=== PATIENT | male | born 1950 | race Hispanic/Latino ===

== ENCOUNTER 2017-03-12 09:00 | Inpatient (IN) | payer MEDICARE ==
[2017-02-13 09:03] VITALS: BMI 32.8
--- NOTE | 2017-03-12 09:23 | CP.PCM.HP ---
History of Present Illness - History of Present Illness History of Present Illness: 66M with right knee DJD failed conservative mgmt and elected for TKR. PMH: HTN, DM, hyperlipidemia PSH: denies No history of bleeding disorder or blood clots. No history of stent. No recent illness. NKDA Present on Admission - Present on Admission Any Indicators Present on Admission: No Review of Systems - Review of Systems All systems: reviewed and no additional remarkable complaints except Past Patient History - Past Medical History & Family History Past Medical History?: Yes - Past Social History Smoking Status: Former Smoker - CARDIAC Hx Cardiac Disorders: Yes Hx Hypercholesterolemia: Yes Hx Hypertension: Yes - PULMONARY Hx Respiratory Disorders: No - NEUROLOGICAL Hx Neurological Disorder: No - HEENT Hx HEENT Problems: Yes Hx Cataracts: Yes (SINCE RIGHT EYE-NO SURGERY) - RENAL Hx Chronic Kidney Disease: No - ENDOCRINE/METABOLIC Hx Endocrine Disorders: Yes Hx Diabetes Mellitus Type 2: Yes - HEMATOLOGICAL/ONCOLOGICAL Hx Blood Disorders: No - INTEGUMENTARY Hx Dermatological Problems: No - MUSCULOSKELETAL/RHEUMATOLOGICAL Hx Musculoskeletal Disorders: Yes Hx Osteoarthritis: Yes - GASTROINTESTINAL Hx Gastrointestinal Disorders: No - GENITOURINARY/GYNECOLOGICAL Hx Genitourinary Disorders: No - PSYCHIATRIC Hx Psychophysiologic Disorder: No - SURGICAL HISTORY Hx Surgeries: Yes - ANESTHESIA Hx Anesthesia: Yes Hx Anesthesia Reactions: No Hx Malignant Hyperthermia: No Has any member of the family had a problem w/ anesthesia?: No Meds Allergies/Adverse Reactions: Allergies Allergy/AdvReac Type Severity Reaction Status Date / Time No Known Allergies Allergy Verified 02/13/17 09:03 Physical Exam - Constitutional Appears: Well, No Acute Distress Additional comments: medical H&P/clearance on chart - Head Exam Head Exam: ATRAUMATIC - Respiratory Exam Respiratory Exam: NORMAL BREATHING PATTERN - Extremities Exam Additional comments: calves soft NT neg homans - Expanded Lower Extremities Exam Right Neuro vacular tendon exam: no vascular compromise - Neurological Exam Neurological exam: Alert, Oriented x3 - Psychiatric Exam Psychiatric exam: Normal Affect, Normal Mood - Skin Skin Exam: Dry, Intact, Normal Color, Warm Results - Labs Labs: labs on chart, reviewed. - EKG Data EKG Interpreted by: Other EKG shows normal: Sinus rhythm Rate: Normal - Impressions Impression: atient Name / ID : TESSA PABON Tatyana / [id number] Exam Date : 02/13/2017 09:21:52 ( Approved ) Study Comment : Sex / Age : M / 66Y Creator : Milena Pisano MD Dictator : Milena Pisano MD Marketing Producer : Media Manager : Milena Pisano MD Approver2 : Report Date : 02/13/2017 10:18:00 My Comment : HISTORY: PREOP O.R. 03/12 COMPARISON: No prior. TECHNIQUE: Chest PA and lateral FINDINGS: LUNGS: The lungs are well inflated and clear. PLEURA: No significant pleural effusion identified. No pneumothorax apparent. CARDIOVASCULAR: Normal. OSSEOUS STRUCTURES: No significant abnormalities. VISUALIZED UPPER ABDOMEN: Normal. OTHER FINDINGS: None. IMPRESSION: No active pulmonary disease. Assessment & Plan (1) Primary osteoarthritis of right knee Assessment and Plan: NPO T&S for OR Status: Acute (2) Hypertension Assessment and Plan: cont home meds Status: Chronic (3) Diabetes type 2, controlled Assessment and Plan: cont home meds RISS Status: Chronic (4) Hyperlipemia Status: Chronic Decision To Admit - Pt Status Changed To: Hospital Disposition Of: Inpatient - Admit Certification Admit to Inpatient:: After my assessment, the patient will require hospitalization for at least two midnights. This is because of the severity of symptoms shown, intensity of services needed, and/or the medical risk in this patient being treated as an outpatient. - InPatient: Physician Admission Certification:: After my assessment, the patient will require hospitalization for at least two midnights. This is because of the severity of symptoms shown, intensity of services needed, and/or the medical risk in this patient being treated as an outpatient. - . Bed Request Type: Regular
[2017-03-12] MEDS ORDERED: Propofol 10 mg/ml Inj (20 ML) ONE (10:03)
[2017-03-12] MEDS ORDERED: Midazolam 2 MG/2 ML VIAL ONE (10:03)
[2017-03-12] MEDS: ceFAZolin IV 2 gm in Dextrose 1 GM/50 ML BAG IVPB ONE ×2 (10:59→11:40)
[2017-03-12] MEDS: Sodium Chloride 0.9% 60 ML IV ONE ×2 (11:01→12:45)
[2017-03-12] MEDS: Bacitracin 150,000 UNIT in Sodium Chloride 0.9% Irrig 3,000 ML IR SCH ×2 (11:01→11:53)
[2017-03-12] MEDS ORDERED: Succinylcholine Chloride 20 mg/ml Syr (5 ml) IV ONE (11:21)
[2017-03-12] MEDS: Bupivacaine Liposomal Inj 20 ml INFIL ONE ×2 (11:43→12:45)
[2017-03-12] MEDS: Tranexamic Acid 100 mg/ml IV SCH ×3 (11:43→13:11)
[2017-03-12] MEDS ORDERED: Neostigmine Methylsulfate 3mg/3ml Syringe IV ONE (13:23)
[2017-03-12] MEDS ORDERED: Morphine 4 MG/ML VIAL ONE (14:16)
[2017-03-12] MEDS ORDERED: Oxycodone/Acetaminophen 5/325 mg Tab PO PRN (14:23)
[2017-03-12] MEDS ORDERED: HYDROmorphone 0.5 mg/0.5 ml ISec IVP PRN (14:25)
[2017-03-12] MEDS ORDERED: ceFAZolin IV 2 gm in Dextrose 2 GM/100 ML BAG IVPB SCH (14:30)
[2017-03-12] MEDS ORDERED: Bupivacaine HCl 0.25% PF (10 ml) Inj ONE ×2 (14:31→14:32)
--- NOTE | 2017-03-12 14:31 | PCM.SURG1 ---
Surgeon's Initial Post Op Note - Surgeon's Notes Surgeon: Amy Jacobs MD Full Stack Python Developer: Gema Villanueva PA-C Type of Anesthesia: General Endo Anesthesia Administered By: Dr. Giraldo/Tosha AGUIRRE Pre-Operative Diagnosis: Right knee DJD Operative Findings: Tourniquet 77 min @300mmHg Post-Operative Diagnosis: same Operation Performed: Right total knee replacement Specimen/Specimens Removed: bone Estimated Blood Loss: EBL {In ML}: 100 Blood Products Given: N/A Drains Used: Hemovac Post-Op Condition: Fair Date of Surgery/Procedure: 03/12/17 Time of Surgery/Procedure: 14:30
[2017-03-12] MEDS: (Novolin R) Insulin Human Regular 100 units/ml vial SC SCH ×2 (16:15→21:40)
[2017-03-12] MEDS ORDERED: Sodium Chloride 0.9% 1,000 ML IV ONE (16:15)
--- NOTE | 2017-03-12 18:48 | CP.PCM.CON ---
History of Present Illness - History of Present Illness History of Present Illness: s/pr TKA HPI: Pt is a 66 year old male who follows with me for many years as his PMD. Pt had been having increasing difficulty with ambulation but was unable to have the funds/insurance to get his knee problem addressed. Finally pt decided to get his knee replaced bec of the pain. Pt was cleared by me for his operation, and today after surgery, I was called in to manage the pt from a Medical standpoint. > Pt is a diet controlled diabetic mostly, and was cleared by me for R TKR. Pt appeared to be doing well, no apparent complications form surgery. > Will continue to follow pt with you. Review of Systems - Constitutional Constitutional: absent: As Per HPI, Anorexia, Chills, Daytime Sleepiness, Excessive Sweating, Fatigue, Fever, Frequent Falls, Headache, Increased Appetite , Lethargy, Malaise, Night Sweats, Snoring, Sleep Apnea, Weight Gain, Weight Loss, Weakness, Other - EENT Eyes: absent: As Per HPI, Blind Spots, Blurred Vision, Change in Vision, Decreased Night Vision, Diplopia, Discharge, Dry Eye, Exophthalmos, Floaters, Irritation, Itchy Eyes, Loss of Peripheral Vision, Pain, Photophobia, Requires Corrective Lenses, Sees Flashes, Spots in Vision, Tunnel Vision, Other Visual Disturbances, Loss of Vision, Other Ears: absent: As Per HPI, Decreased Hearing, Ear Discharge, Ear Pain, Tinnitus, Abnormal Hearing, Disequilibrium, Dizziness, Other Nose/Mouth/Throat: absent: As Per HPI, Epistaxis, Nasal Congestion, Nasal Discharge, Nasal Obstruction, Nasal Trauma, Nose Pain, Post Nasal Drip, Sinus Pain, Sinus Pressure, Bleeding Gums, Change in Voice, Dental Pain, Dry Mouth, Dysphagia, Halitosis, Hoarsness, Lip Swelling, Mouth Lesions, Mouth Pain, Odynophagia, Sore Throat, Throat Swelling, Tongue Swelling, Facial Pain, Neck Pain, Neck Mass, Other - Cardiovascular Cardiovascular: absent: As Per HPI, Acrocyanosis, Chest Pain, Chest Pain at Rest , Chest Pain with Activity, Claudication, Diaphoresis, Dyspnea, Dyspnea on Exertion, Edema, Irregular Heart Rhythm, Pain Radiating to Arm/Neck/Jaw, Leg Edema, Leg Ulcers, Lightheadedness, Orthopnea, Palpitations, Paroxysmal Nocturnal Dyspnea, Pedal Edema, Radiating Pain, Rapid Heart Rate, Slow Heart Rate, Syncope, Other - Respiratory Respiratory: absent: As Per HPI, Cough, Dyspnea, Hemoptysis, Dyspnea on Exertion , Wheezing, Snoring, Stridor, Pain on Inspiration, Chest Congestion, Excessive Mucous Production, Change in Mucous Color, Pain with Coughing, Other - Gastrointestinal Gastrointestinal: absent: As Per HPI, Abdominal Pain, Belching, Bloating, Change in Bowel Habits, Change in Stool Character, Coffee Ground Emesis, Constipation, Cramping, Diarrhea, Dyspepsia, Dysphagia, Early Satiety, Excessive Flatus, Fecal Incontinence, Heartburn, Hematemesis, Hematochezia, Loose Stools, Melena, Nausea, Odynophagia, Temesmus, Vomiting, Other - Genitourinary Genitourinary: absent: As Per HPI, Change in Urinary Stream, Difficulty Urinating, Dysuria, Flank Pain, Hematuria, Pyuria, Nocturia, Urinary Incontinence, Urinary Frequency, Urinary Hesitance, Urinary Urgency, Voiding Freq/Small Amts, Freq UTI, Hx Renal/Bladder Calculi, Hx /Renal Surgery, Bladder Distension, Other - Musculoskeletal Musculoskeletal: absent: As Per HPI, Abnormal Gait, Arthralgias, Atrophy, Back Pain, Deformity, Joint Swelling, Limited Range of Motion, Loss of Height, Muscle Cramps, Muscle Weakness, Myalgias, Neck Pain, Numbness, Radiating Pain into Limb, Stiffness, Tingling, Other - Integumentary Integumentary: absent: As Per HPI, Acne, Alopecia, Bleeding Lesions, Change in Hair, Change in Nails, Change in Pigmentation, Changing Lesions, Dry Skin, Erythema, Furuncle, Hirsutism, Lesions, New Lesions, Non-Healing Lesions, Photosensitivity, Pruritus, Rash, Skin Pain, Skin Ulcer, Sores, Striae, Swelling , Unusual Bruising, Wounds, Jaundice, Other - Neurological Neurological: absent: As Per HPI, Abnormal Gait, Abnormal Hearing, Abnormal Movements, Abnormal Speech, Behavioral Changes, Burning Sensations, Confusion, Convulsions, Disequilibrium, Dizziness, Numbness, Focal Weakness, Frequent Falls , Headaches, Lack of Coordination, Loss of Vision, Memory Loss, Paresthesias, Radicular Pain, Restless Legs, Sensory Deficit, Syncope, Tingling, Tremor, Vertigo, Weakness, Other Visual Disturbances, Other - Psychiatric Psychiatric: absent: As Per HPI, Abnormal Sleep Pattern, Anhedonia, Anxiety, Auditory Hallucinations, Behavioral Changes, Change in Appetite, Change in Libido, Confusion, Depression, Difficulty Concentrating, Hallucinations, Homicidal Ideation, Hopelessness, Irritability, Memory Loss, Mood Swings, Panic Attacks, Paranoia, Suicidal Ideation, Visual Hallucinations, Tactile Hallucinations, Other - Endocrine Endocrine: absent: As Per HPI, Change in Body Appearance, Change in Libido, Cold Intolorance, Deepening of Voice, Excessive Sweating, Fatigue, Flushing, Heat Intolorance, Increase in Ring/Shoe/Hat Size, Palpitations, Polydipsia, Polyphagia, Polyuria, Other Additional Comments: + DM - Hematologic/Lymphatic Hematologic: As Per HPI Past Patient History - Tetanus Immunizations Tetanus Immunization: >10 years Ago - Past Medical History & Family History Past Medical History?: Yes Past Family History: Reviewed and not pertinent - Past Social History Smoking Status: Former Smoker Chewing Tobacco Use: No Cigar Use: No - CARDIAC Hx Cardiac Disorders: Yes Hx Hypercholesterolemia: Yes Hx Hypertension: Yes - PULMONARY Hx Respiratory Disorders: No - NEUROLOGICAL Hx Neurological Disorder: No - HEENT Hx HEENT Problems: Yes Hx Cataracts: Yes (SINCE RIGHT EYE-NO SURGERY) - RENAL Hx Chronic Kidney Disease: No - ENDOCRINE/METABOLIC Hx Diabetes Mellitus Type 2: Yes - HEMATOLOGICAL/ONCOLOGICAL Hx Blood Disorders: No - INTEGUMENTARY Hx Dermatological Problems: No - MUSCULOSKELETAL/RHEUMATOLOGICAL Hx Musculoskeletal Disorders: Yes Hx Osteoarthritis: Yes - GASTROINTESTINAL Hx Gastrointestinal Disorders: No - GENITOURINARY/GYNECOLOGICAL Hx Genitourinary Disorders: No - PSYCHIATRIC Hx Psychophysiologic Disorder: No - SURGICAL HISTORY Hx Surgeries: Yes - ANESTHESIA Hx Anesthesia: Yes Hx Anesthesia Reactions: No Hx Malignant Hyperthermia: No Has any member of the family had a problem w/ anesthesia?: No Meds Home Medications: Home Medication List Medication Instructions Recorded Confirmed Type Docusate [Colace] 100 mg PO BID cap 03/14/17 Rx Enoxaparin [Lovenox] 30 mg SC Q12H syr 03/14/17 Rx SITagliptin [Januvia] 100 mg PO DAILY tab 03/14/17 Rx oxyCODONE/Acetaminophen [Percocet 2 tab PO Q4H PRN tab 03/14/17 Rx 5/325 mg Tab] Allergies/Adverse Reactions: Allergies Allergy/AdvReac Type Severity Reaction Status Date / Time No Known Allergies Allergy Verified 02/13/17 09:03 - Medications Medications: Current Medications Acetaminophen (Tylenol 325mg Tab) 650 mg PO Q4 PRN PRN Reason: Fever 101 degrees fahrenheit Docusate Sodium (Colace) 100 mg PO BID [facility] Enoxaparin Sodium (Lovenox) 30 mg SC Q12H [facility] Hydromorphone HCl (Dilaudid) 1 mg IVP Q4H PRN PRN Reason: Pain, severe (8-10) Sodium Chloride (Sodium Chloride 0.9%) 1,000 mls @ 100 mls/hr IV .Q10H [facility] Cefazolin Sodium/Dextrose (Ancef Iv 2 Gm Duplex) 2 gm in 100 mls @ 100 mls/hr IVPB Q8H [facility] Stop: 03/13/17 02:59 Insulin Human Regular (Novolin R) 0 unit SC ACHS [facility] PRN Reason: Protocol Last Admin: 03/12/17 16:15 Dose: 3 unit Lisinopril (Zestril) 10 mg PO DAILY [facility] Metformin HCl (Glucophage) 850 mg PO BIDCC [facility] Oxycodone/Acetaminophen (Percocet 5/325 Mg Tab) 2 tab PO Q4H PRN PRN Reason: Pain, moderate (4-7) Stop: 03/15/17 14:24 Rosuvastatin Calcium (Crestor) 2.5 mg PO HS [facility] Rosuvastatin Calcium (Crestor) 2.5 mg PO HS [facility] Physical Exam - Constitutional Appears: No Acute Distress - Head Exam Head Exam: NORMAL INSPECTION - Eye Exam Eye Exam: EOMI, Normal appearance, PERRL Pupil Exam: NORMAL ACCOMODATION - ENT Exam ENT Exam: Mucous Membranes Moist, Normal Exam - Neck Exam Neck exam: Positive for: Normal Inspection - Respiratory Exam Respiratory Exam: Clear to Auscultation Bilateral, NORMAL BREATHING PATTERN - Cardiovascular Exam Cardiovascular Exam: REGULAR RHYTHM - GI/Abdominal Exam GI & Abdominal Exam: Normal Bowel Sounds, Soft - Rectal Exam Rectal Exam: Deferred - Extremities Exam Extremities exam: Positive for: normal inspection (R leg with drain; + CPM machine) - Back Exam Back exam: NORMAL INSPECTION, tenderness Additional comments: from lying down - Neurological Exam Neurological exam: Alert, Normal Gait Additional comments: with assistance - Psychiatric Exam Psychiatric exam: Normal Affect, Normal Mood - Skin Skin Exam: Dry, Intact, Normal Color, Warm Results - Vital Signs Recent Vital Signs: Last Vital Signs Temp 97.5 F L 03/12/17 16:15 Pulse 88 03/12/17 16:15 Resp 13 03/12/17 16:15 BP 135/65 03/12/17 16:15 Pulse Ox 100 03/12/17 16:15 - Labs Result Diagrams: 03/14/17 06:36 03/14/17 06:36 Labs: Laboratory Results - last 24 hr 03/12/17 03/12/17 03/12/17 09:36 09:52 16:08 POC Glucose (mg/dL) 200 H 212 H Blood Type A POSITIVE Antibody Screen Negative Assessment & Plan (1) Primary osteoarthritis of right knee Assessment and Plan: s/p TKR, under Ortho mgt. will follow; pain control sinfcantly lower than normal . Suggest increasing dosage to allow for extensive therapy. Status: Acute (2) Diabetes type 2, controlled Assessment and Plan: 1. calllyou insurance comapny if your meds become too expe2. agree with initial management of metformin and regular insulin until things quiet down. 2. Monitoring pt for adequate pain control. 3. will encourage early ambulation Thank you for this referral. Will follow pt's recovery with you Status: Chronic (3) Hyperlipemia Assessment and Plan: generally controlled but on simvastatin, continue Status: Chronic (4) Hypertension Status: Chronic
[2017-03-12] MEDS: ceFAZolin IV 2 gm in Dextrose 2 GM/100 ML BAG IVPB SCH (18:54)
[2017-03-12] MEDS ORDERED: Rosuvastatin Calcium 2.5 mg Tab PO SCH (22:00)
[2017-03-12] MEDS: Rosuvastatin Calcium 2.5 mg Tab PO SCH (22:00)
[2017-03-12] MEDS: Sodium Chloride 0.9% 1,000 ML IV SCH (22:07)
[2017-03-12] MEDS: HYDROmorphone 1 mg/ml ISec IVP PRN (22:51)
[2017-03-13] MEDS: Sodium Chloride 0.9% 1,000 ML IV SCH (01:00)
[2017-03-13] MEDS: ceFAZolin IV 2 gm in Dextrose 2 GM/100 ML BAG IVPB SCH (02:00)
--- NOTE | 2017-03-13 05:23 | OP ---
PROCEDURE DATE: 03/12/2017 PREOPERATIVE DIAGNOSIS: Right knee arthritis. POSTOPERATIVE DIAGNOSIS: Right knee arthritis. PROCEDURE: Right total knee arthroplasty. SURGEON: Vamsi Jacobs MD DIRECTOR MEDICAL WRITING: Dr. Jacobs was assisted by Sanjay Villanueva, a 3rd year medical student. Ms. Villanueva was scrubbed and present throughout the entire case and assisted in patient positioning, retraction, wound closure throughout the case. TYPE OF ANESTHESIA: General. COMPLICATIONS: None. ESTIMATED BLOOD LOSS: Over 100 mL. TOURNIQUET TIME: 77 minutes at 200 mm/Hg. IMPLANTS: [employer] V[employer]ard system. INDICATIONS FOR PROCEDURE: This is a 66-year-old gentleman who presented with longstanding right knee pain. Clinical examination was consistent with varus malalignment of the knee, significant medial joint line tenderness to palpation. Radiographic examination consistent with advanced degenerative joint disease of the knee. After a period of failed nonsurgical management, recommendations were for right total knee arthroplasty. The risks, benefits, and alternatives of the procedure were discussed with the patient and the informed consent was obtained. OPERATIVE PROCEDURE: After the surgical site was verified in the preoperative holding area, the patient was taken to the operating room and placed in supine on the operating table. After administration of general anesthesia, the patient received 2 g of Ancef IV. Tomlin catheter was inserted. The tourniquet was placed about the right thigh. Care was taken to make sure all bony prominences and nerves were well padded and protected. VA9 boot was placed on the nonoperative extremity and the right lower extremity was prepped and draped in the usual sterile fashion. Right lower extremity was exsanguinated and the tourniquet was inflated. Approximately, 10 cm longitudinal midline incision was made. Soft tissue was dissected sharply after the knee joint. Medial parapatellar arthrotomy was performed. Medial and lateral menisci, the anterior fat pad, the ACL and PCL were all resected. Once the knee joint had been adequately exposed, the ------ was used to drill into the medullary canal and distal femur. The intramedullary distal femoral cutting block was inserted and tamped into place. A distal femoral resection was performed. Next, femoral component was sized and 4-in-1 cut block was inserted and anterior and posterior cuts were performed. Next, the box cut was performed on the femur and the attention directed to the tibia. Extramedullary tibia was pinned into place. Satisfied with our alignment, our tibial resection was performed. At this point, flexion and extension gaps were checked and the patient was noted to be stable with both flexion and extension and had full extension and flexion. At this point, the medullary canal of the proximal tibia was reamed and punched with a cruciate punch. With a trial tibia, trial femur, and trial ------ in place, the knee was taken through a range of motion and was noted to be having full extension and flexion and stable throughout. Our attention was then directed to the patella. Thickness of the patella was measured and a patellar resection was performed. The patella was sized and ------ patella was then drilled. The trial patella was placed and the knee was taken a through range of motion. The patient was noted to have some lateral patellar tilt and this was corrected by performing a lateral retinacular release. At this point, ------ were removed, then the knee joint was pulsed lavaged with antibiotic saline solution. Bony surfaces were dry with actual tibial, femoral and patellar components left in place. Care was taken to remove all excess cement. Once the cement hardened, the wound was once again inspected for any debris and pulsed lavaged. The actual ------ was then inserted and locked into place with a cross pin. The tourniquet was deflated and any obvious bleeding was cauterized. The medium Hemovac drain was inserted and arthrotomy was closed using #1 Vicryl suture. Subcutaneous tissue was closed using 0-Vicryl and 2-0 Vicryl suture and the skin was closed using isaac. Sterile dressing was applied and a knee immobilizer was placed. Patient was awakened from the procedure and taken to the recovery room in stable condition. Vamsi Jacobs MD
--- NOTE | 2017-03-13 07:24 | CP.PCM.PN ---
Subjective - Date & Time of Evaluation Date of Evaluation: 03/13/17 Time of Evaluation: 07:22 - Subjective Subjective: patient states pain is well controlled overnight, starting to feel a little more throbbing. Denies CP/SOB/dizziness/numbness/tingling/n/v. Good appetite. Objective - Vital Signs/Intake and Output Vital Signs (last 24 hours): Temp Pulse Resp BP Pulse Ox 98.3 F 87 20 125/75 96 03/13/17 05:30 03/13/17 05:30 03/13/17 00:33 03/13/17 05:30 03/13/17 00:33 Intake and Output: 03/13/17 03/13/17 06:59 18:59 Intake Total 1790 Output Total 3310 Balance -1520 - Medications Medications: Current Medications Acetaminophen (Tylenol 325mg Tab) 650 mg PO Q4 PRN PRN Reason: Fever 101 degrees fahrenheit Docusate Sodium (Colace) 100 mg PO BID [facility] Last Admin: 03/12/17 18:54 Dose: 100 mg Enoxaparin Sodium (Lovenox) 30 mg SC Q12H [facility] Hydromorphone HCl (Dilaudid) 1 mg IVP Q4H PRN PRN Reason: Pain, severe (8-10) Last Admin: 03/12/17 22:51 Dose: 1 mg Sodium Chloride (Sodium Chloride 0.9%) 1,000 mls @ 100 mls/hr IV .Q10H [facility] Last Admin: 03/13/17 01:00 Dose: Not Given Insulin Human Regular (Novolin R) 0 unit SC ACHS [facility] PRN Reason: Protocol Last Admin: 03/12/17 21:40 Dose: Not Given Lisinopril (Zestril) 10 mg PO DAILY [facility] Metformin HCl (Glucophage) 850 mg PO BIDCC [facility] Oxycodone/Acetaminophen (Percocet 5/325 Mg Tab) 2 tab PO Q4H PRN PRN Reason: Pain, moderate (4-7) Stop: 03/15/17 14:24 Rosuvastatin Calcium (Crestor) 2.5 mg PO HS [facility] Last Admin: 03/12/17 21:12 Dose: 2.5 mg Rosuvastatin Calcium (Crestor) 2.5 mg PO HS [facility] - Extremities Exam Additional comments: RLE: +ROM ankle/toes, sensation intact, +DP pulse, calves soft NT neg homans Assessment and Plan (1) Primary osteoarthritis of right knee Assessment & Plan: POD#1 s/p Right TKR -f/u labs -PT?OT -VTE proph -d/c planning to home vs TCU, PT eval pending -CPM -d/w Dr. Jacobs, agrees with above Status: Acute (2) Hypertension Assessment & Plan: medical consultation appreciated cont home meds Status: Chronic (3) Diabetes type 2, controlled Status: Chronic (4) Hyperlipemia Status: Chronic
[2017-03-13 07:35] LABS: HEMATOCRIT 33.8 % (35.0-51.0); MEAN CELL VOLUME 83.8 fL (80.0-94.0); MEAN CORPUSCULAR HEMOGLOBIN 27.8 pg (27.0-31.0); MEAN CORPUSCULAR HGB CONC 33.2 g/dL (33.0-37.0); MEAN PLATELET VOLUME 9.3 fL (7.2-11.7); RED CELL DISTRIBUTION WIDTH 14.6 % (11.5-14.5)
[2017-03-13 07:57] LABS: WHITE BLOOD COUNT 12.1 K/uL (4.8-10.8)
[2017-03-13] MEDS: (Novolin R) Insulin Human Regular 100 units/ml vial SC SCH ×5 (08:06→22:20)
[2017-03-13] MEDS: HYDROmorphone 1 mg/ml ISec IVP PRN ×4 (08:11→23:00)
[2017-03-13 08:31] LABS: CHLORIDE 97 mmol/L (98-107); SODIUM 134 mmol/L (132-148)
[2017-03-13 08:32] LABS: POTASSIUM 4.5 mmol/L (3.6-5.2)
[2017-03-13 08:34] LABS: ALKALINE PHOSPHATASE 50 U/L (38-126); AST/SGOT 17 U/L (17-59); BILIRUBIN,TOTAL 0.5 mg/dL (0.2-1.3); BLOOD UREA NITROGEN 14 mg/dL (9-20); CARBON DIOXIDE 25 mmol/L (22-30); GFR AFRICAN-AMERICAN > 60
--- NOTE | 2017-03-13 08:34 | RAD ---
PROCEDURE: Right Knee Radiographs. HISTORY: s/p TKR< pt in PACU COMPARISON: None. FINDINGS: BONES: Status post right TKA are. No osseous fracture. Prosthesis grossly intact. Surgical drain noted. Expected postoperative soft tissue changes. JOINTS: As above JOINT EFFUSION: None. OTHER FINDINGS: None. IMPRESSION: Status post right TKR.
[2017-03-13 08:35] LABS: ALT/SGPT 25 U/L (21-72); CALCIUM 8.3 mg/dl (8.6-10.4); GLUCOSE,RANDOM 236 mg/dL (75-110)
[2017-03-13 08:42] LABS: FOLATE 8.8 ng/mL
--- NOTE | 2017-03-13 09:46 | CP.PCM.PN ---
Subjective - Date & Time of Evaluation Date of Evaluation: 03/13/17 Time of Evaluation: 09:44 - Subjective Subjective: Pt feels good. Denies any significant pain. VSS RLE: dressing and immobilizer intact NVI distally drain off suction for now Hg 11.2 POD#1 Lovenox PT dressing change tomorrow D/c planning Objective - Vital Signs/Intake and Output Vital Signs (last 24 hours): Temp Pulse Resp BP Pulse Ox 98.4 F 76 18 120/71 98 03/13/17 07:58 03/13/17 07:58 03/13/17 07:58 03/13/17 07:58 03/13/17 07:58 Intake and Output: 03/13/17 03/13/17 06:59 18:59 Intake Total 1790 Output Total 3310 Balance -1520 - Medications Medications: Current Medications Acetaminophen (Tylenol 325mg Tab) 650 mg PO Q4 PRN PRN Reason: Fever 101 degrees fahrenheit Docusate Sodium (Colace) 100 mg PO BID [facility] Last Admin: 03/12/17 18:54 Dose: 100 mg Enoxaparin Sodium (Lovenox) 30 mg SC Q12H [facility] Hydromorphone HCl (Dilaudid) 1 mg IVP Q4H PRN PRN Reason: Pain, severe (8-10) Last Admin: 03/13/17 08:11 Dose: 1 mg Insulin Human Regular (Novolin R) 0 unit SC ACHS [facility] PRN Reason: Protocol Last Admin: 03/13/17 08:06 Dose: 4 unit Lisinopril (Zestril) 10 mg PO DAILY [facility] Last Admin: 03/13/17 08:07 Dose: 850 mg Oxycodone/Acetaminophen (Percocet 5/325 Mg Tab) 2 tab PO Q4H PRN PRN Reason: Pain, moderate (4-7) Stop: 03/15/17 14:24 Rosuvastatin Calcium (Crestor) 2.5 mg PO HS [facility] Last Admin: 03/12/17 21:12 Dose: 2.5 mg Rosuvastatin Calcium (Crestor) 2.5 mg PO HS [facility] - Labs Labs: 03/13/17 06:53 03/13/17 06:53
[2017-03-13] MEDS: Enoxaparin 30 mg Syringe SC SCH (13:51)
[2017-03-13 16:20] VITALS: RESP 20
[2017-03-13] MEDS: Rosuvastatin Calcium 2.5 mg Tab PO SCH (22:19)
[2017-03-14] MEDS: Oxycodone/Acetaminophen 5/325 mg Tab PO PRN ×4 (00:57→21:19)
[2017-03-14] MEDS: Enoxaparin 30 mg Syringe SC SCH ×2 (00:59→13:55)
[2017-03-14 06:57] LABS: BLOOD UREA NITROGEN 14 mg/dL (9-20); CALCIUM 8.3 mg/dl (8.6-10.4); CARBON DIOXIDE 27 mmol/L (22-30); CHLORIDE 94 mmol/L (98-107); GFR AFRICAN-AMERICAN > 60; GLUCOSE,RANDOM 199 mg/dL (75-110); POTASSIUM 4.2 mmol/L (3.6-5.2); SODIUM 135 mmol/L (132-148)
[2017-03-14 07:20] LABS: HEMATOCRIT 30.6 % (35.0-51.0); MEAN CELL VOLUME 83.7 fL (80.0-94.0); MEAN CORPUSCULAR HEMOGLOBIN 28.2 pg (27.0-31.0); MEAN CORPUSCULAR HGB CONC 33.7 g/dL (33.0-37.0); MEAN PLATELET VOLUME 9.3 fL (7.2-11.7); RED CELL DISTRIBUTION WIDTH 14.5 % (11.5-14.5); WHITE BLOOD COUNT 12.7 K/uL (4.8-10.8)
[2017-03-14] MEDS: (Novolin R) Insulin Human Regular 100 units/ml vial SC SCH ×4 (08:12→21:17)
--- NOTE | 2017-03-14 08:23 | CP.PCM.PN ---
Subjective - Date & Time of Evaluation Date of Evaluation: 03/14/17 Time of Evaluation: 09:58 - Subjective Subjective: Patient states pain is 4/10 during dressing change. He was able to get OOBTC for breakfast. Denies CP/SOB/dizziness/n/v/numbness/tingling/cough/dysuria. Objective - Vital Signs/Intake and Output Vital Signs (last 24 hours): Temp Pulse Resp BP Pulse Ox 98.4 F 83 20 133/82 97 03/14/17 05:42 03/14/17 05:42 03/14/17 05:42 03/14/17 05:42 03/13/17 23:25 Intake and Output: 03/14/17 03/14/17 06:59 18:59 Intake Total 780 Output Total 1250 Balance -470 - Medications Medications: Current Medications Acetaminophen (Tylenol 325mg Tab) 650 mg PO Q4 PRN PRN Reason: Fever 101 degrees fahrenheit Docusate Sodium (Colace) 100 mg PO BID [facility] Last Admin: 03/13/17 17:14 Dose: 100 mg Enoxaparin Sodium (Lovenox) 30 mg SC Q12H [facility] Last Admin: 03/14/17 00:59 Dose: 30 mg Hydromorphone HCl (Dilaudid) 1 mg IVP Q4H PRN PRN Reason: Pain, severe (8-10) Last Admin: 03/13/17 23:00 Dose: 1 mg Insulin Human Regular (Novolin R) 0 unit SC [facility] PRN Reason: Protocol Last Admin: 03/14/17 08:12 Dose: 3 unit Lisinopril (Zestril) 10 mg PO DAILY [facility] Last Admin: 03/13/17 10:25 Dose: 10 mg [facility]) [facility] Last Admin: 03/14/17 08:07 Dose: 850 mg Oxycodone/Acetaminophen (Percocet 5/325 Mg Tab) 2 tab PO Q4H PRN PRN Reason: pain, mild to moderate Stop: 03/15/17 14:24 Last Admin: 03/14/17 08:06 Dose: 2 tab Rosuvastatin Calcium (Crestor) 2.5 mg PO HS [facility] Last Admin: 03/13/17 22:19 Dose: 2.5 mg Sitagliptin Phosphate (Januvia) 100 mg PO DAILY [facility] - Labs Labs: 03/14/17 06:36 03/14/17 06:36 - Extremities Exam Additional comments: Dressing change, hemovac pulled. Incision intact, no erythema, mild-mod swelling as expected. Sensation intact, +DP/PT pulses, calves soft NT neg homans. Sterile dressing applied. Assessment and Plan (1) Primary osteoarthritis of right knee Assessment & Plan: POD#2 s/p right knee TKR -cont PT/OT -VTE proph -labs reviewed, Tmax 100, encouraged IS -d/c to [facility] today -f/u in office 7-10 days call for appointment -d/w Dr. Jacobs, agrees with above Status: Acute (2) Hypertension Assessment & Plan: cont home meds Status: Chronic (3) Diabetes type 2, controlled Status: Chronic (4) Hyperlipemia Status: Chronic
--- NOTE | 2017-03-14 10:22 | CP.PCM.DIS ---
Provider - Provider Date of Admission: 03/12/17 09:00 Attending physician: Vamsi Jacobs MD Primary care physician: Dr. Shaun Connors Consults: Dr. Karin Connors Time Spent in preparation of Discharge (in minutes): 5 Diagnosis - Discharge Diagnosis (1) Primary osteoarthritis of right knee Status: Acute (2) Hypertension Status: Chronic (3) Diabetes type 2, controlled Status: Chronic (4) Hyperlipemia Status: Chronic (5) Acute blood loss anemia Status: Acute Comment: hemodynamically stable on discharge Hospital Course - Lab Results Lab Results: Most Recent Lab Values WBC 12.7 K/uL (4.8-10.8) H 03/14/17 06:36 RBC 3.65 Mil/uL (4.40-5.90) L 03/14/17 06:36 Hgb 10.3 g/dL (12.0-18.0) L 03/14/17 06:36 Hct 30.6 % (35.0-51.0) L 03/14/17 06:36 MCV 83.7 fL (80.0-94.0) 03/14/17 06:36 MCH 28.2 pg (27.0-31.0) 03/14/17 06:36 MCHC 33.7 g/dL (33.0-37.0) 03/14/17 06:36 RDW 14.5 % (11.5-14.5) 03/14/17 06:36 Plt Count 166 K/uL (130-400) 03/14/17 06:36 MPV 9.3 fL (7.2-11.7) 03/14/17 06:36 Sodium 135 mmol/L (132-148) 03/14/17 06:36 Potassium 4.2 mmol/L (3.6-5.2) 03/14/17 06:36 Chloride 94 mmol/L (98-107) L 03/14/17 06:36 Carbon Dioxide 27 mmol/L (22-30) 03/14/17 06:36 Anion Gap 18 (10-20) 03/14/17 06:36 BUN 14 mg/dL (9-20) 03/14/17 06:36 Creatinine 0.8 MG/DL (0.8-1.5) 03/14/17 06:36 Est GFR ( Amer) > 60 03/14/17 06:36 Est GFR (Non-Af Amer) > 60 03/14/17 06:36 POC Glucose (mg/dL) 244 mg/dL (65-110) H 03/14/17 06:35 Random Glucose 199 mg/dL (75-110) H 03/14/17 06:36 Calcium 8.3 mg/dl (8.6-10.4) L 03/14/17 06:36 Total Bilirubin 0.5 mg/dL (0.2-1.3) 03/13/17 06:53 AST 17 U/L (17-59) 03/13/17 06:53 ALT 25 U/L (21-72) 03/13/17 06:53 Alkaline Phosphatase 50 U/L (38-126) 03/13/17 06:53 Total Protein 6.0 g/dL (6.3-8.3) L 03/13/17 06:53 Albumin 3.0 g/dL (3.5-5.0) L 03/13/17 06:53 Globulin 3.0 gm/dL (2.2-3.9) 03/13/17 06:53 Albumin/Globulin Ratio 1.0 (1.0-2.1) 03/13/17 06:53 Vitamin B12 210 pg/mL (239-931) L 03/13/17 06:53 Folate 8.8 ng/mL 03/13/17 06:53 Blood Type A POSITIVE 03/12/17 09:52 Antibody Screen Negative 03/12/17 09:52 - Hospital Course Hospital Course: 66M with PMH: HTN, DM, hypercholesterolemia with right knee osteoarthritis failed conservative management and elected for TKR. Postoperative imaging demonstrated acceptable position of prosthesis. Medical consultation was requested for post operative medical management. HTN and DM were controlled throughout admission. Patients post operative course was complicated by acute blood loss anemia, hemodynamically stable and well tolerated, no treatment needed. Patient tolerated PT/OT well. Patient received VTE prophylaxis in the form of lovenox 30mg SQ q12h and venodynes. PT was discharged to [facility] and continued on home medications as well as the lovenox. Patient was WBAT LLE, ambulating with walker, and given instructions for daily dressing changes and to f/u Dr. Jacobs in 10 days. Discharge Exam - Head Exam Head Exam: ATRAUMATIC Discharge Plan - Follow Up Plan Condition: GOOD Disposition: HOME/ ROUTINE Referrals: Vamsi Jacobs MD [Staff Provider] - 03/25/17 (dressing change right knee daily maintain knee immobilizer at night, may remove during day for ROM WBAT RLE f/u Dr. Jacobs 10 days, call for appointment)
[2017-03-14] MEDS: Rosuvastatin Calcium 2.5 mg Tab PO SCH (21:18)
--- NOTE | 2017-03-15 01:47 | CP.PCM.PN ---
Subjective - Date & Time of Evaluation Date of Evaluation: 03/13/17 Time of Evaluation: 08:30 - Subjective Subjective: Pt seen and examined at bedside. Still draining sanguineous fluid from surgical site.Otherwise pain controlled by combination of Tylenol, Percocet and hdromorphone. Pt says surgery does not hurt much and ifthis is the only pain, he wants to do the other knee quickly this year. > Pt's BS running high and will adjust his meds/add new meds temporarily. Objective - Vital Signs/Intake and Output Vital Signs (last 24 hours): Temp Pulse Resp BP Pulse Ox 98.1 F 87 20 121/70 96 03/14/17 23:30 03/14/17 23:30 03/14/17 23:30 03/14/17 23:30 03/14/17 23:30 Intake and Output: 03/14/17 03/15/17 18:59 06:59 Intake Total 600 320 Output Total 900 Balance -300 320 - Medications Medications: Current Medications Acetaminophen (Tylenol 325mg Tab) 650 mg PO Q4 PRN PRN Reason: Fever 101 degrees fahrenheit Docusate Sodium (Colace) 100 mg PO BID [facility] Last Admin: 03/14/17 17:39 Dose: 100 mg Enoxaparin Sodium (Lovenox) 30 mg SC Q12H [facility] Last Admin: 03/14/17 13:55 Dose: 30 mg Hydromorphone HCl (Dilaudid) 1 mg IVP Q4H PRN PRN Reason: Pain, severe (8-10) Last Admin: 03/13/17 23:00 Dose: 1 mg Insulin Human Regular (Novolin R) 0 unit SC [facility] PRN Reason: Protocol Last Admin: 03/14/17 21:17 Dose: Not Given Lisinopril (Zestril) 10 mg PO DAILY [facility] Last Admin: 03/14/17 09:51 Dose: 10 mg Metformin [facility] (Glucophage) [facility] Last Admin: 03/14/17 17:39 Dose: 850 mg Oxycodone/Acetaminophen (Percocet 5/325 Mg Tab) 2 tab PO Q4H PRN PRN Reason: pain, mild to moderate Stop: 03/15/17 14:24 Last Admin: 03/14/17 21:19 Dose: 2 tab Rosuvastatin Calcium (Crestor) 2.5 mg PO HS [facility] Last Admin: 03/14/17 21:18 Dose: 2.5 mg Sitagliptin Phosphate (Januvia) 100 mg PO DAILY [facility] Last Admin: 03/14/17 09:51 Dose: 100 mg - Labs Labs: 03/14/17 06:36 03/14/17 06:36 - Constitutional Appears: No Acute Distress - Head Exam Head Exam: NORMAL INSPECTION, NORMOCEPHALIC - Eye Exam Eye Exam: Normal appearance - ENT Exam ENT Exam: Mucous Membranes Moist, Normal Exam - Neck Exam Neck Exam: Normal Inspection - Respiratory Exam Respiratory Exam: Clear to Ausculation Bilateral, NORMAL BREATHING PATTERN - Cardiovascular Exam Cardiovascular Exam: REGULAR RHYTHM - GI/Abdominal Exam GI & Abdominal Exam: Normal Bowel Sounds ( ) - Rectal Exam Rectal Exam: Deferred - Extremities Exam Extremities Exam: Normal Inspection (R knee bandaged with protruding drain and sangineous drainage) - Back Exam Back Exam: NORMAL INSPECTION - Neurological Exam Neurological Exam: Awake, Oriented x3 Neuro motor strength exam: Left Upper Extremity: 5, Right Upper Extremity: 5, Left Lower Extremity: 5, Right Lower Extremity: 3 - Psychiatric Exam Psychiatric exam: Normal Affect, Normal Mood - Skin Skin Exam: Dry, Intact, Normal Color, Warm Assessment and Plan (1) Primary osteoarthritis of right knee Status: Acute (2) Diabetes type 2, controlled Status: Chronic (3) Hyperlipemia Status: Chronic (4) Hypertension Status: Chronic
[2017-03-15] MEDS: Enoxaparin 30 mg Syringe SC SCH ×2 (01:57→13:25)
[2017-03-15] MEDS: Oxycodone/Acetaminophen 5/325 mg Tab PO PRN ×2 (02:01→08:49)
[2017-03-15 07:00] LABS: HEMATOCRIT 29.5 % (35.0-51.0); MEAN CELL VOLUME 84.3 fL (80.0-94.0); MEAN CORPUSCULAR HEMOGLOBIN 28.1 pg (27.0-31.0); MEAN CORPUSCULAR HGB CONC 33.3 g/dL (33.0-37.0); MEAN PLATELET VOLUME 9.1 fL (7.2-11.7); RED CELL DISTRIBUTION WIDTH 14.7 % (11.5-14.5); WHITE BLOOD COUNT 10.8 K/uL (4.8-10.8)
[2017-03-15 07:11] LABS: BLOOD UREA NITROGEN 15 mg/dL (9-20); CALCIUM 8.5 mg/dl (8.6-10.4); CARBON DIOXIDE 30 mmol/L (22-30); CHLORIDE 93 mmol/L (98-107); GFR AFRICAN-AMERICAN > 60; GLUCOSE,RANDOM 220 mg/dL (75-110); POTASSIUM 4.2 mmol/L (3.6-5.2); SODIUM 133 mmol/L (132-148)
[2017-03-15] MEDS ORDERED: Bisacodyl 5mg EC Tab PO ONE (08:43)
--- NOTE | 2017-03-15 08:44 | CP.PCM.PN ---
Subjective - Date & Time of Evaluation Date of Evaluation: 03/15/17 Time of Evaluation: 08:41 - Subjective Subjective: Patient states he is feeling better everyday. Pain in knee is well controlled with pain medication. Denies CP/SOB/dizziness. No BM x 3 days. No nausea/ vomiting. Denies numbness/tingling. Patient was not discharged as ordered due to lack of insurance authorization for [facility]. Objective - Vital Signs/Intake and Output Vital Signs (last 24 hours): Temp Pulse Resp BP Pulse Ox 99.0 F 86 20 128/71 96 03/15/17 07:20 03/15/17 07:20 03/15/17 07:20 03/15/17 07:20 03/15/17 07:20 Intake and Output: 03/15/17 03/15/17 06:59 18:59 Intake Total 560 Balance 560 - Medications Medications: Current Medications Acetaminophen (Tylenol 325mg Tab) 650 mg PO Q4 PRN PRN Reason: Fever 101 degrees fahrenheit Docusate Sodium (Colace) 100 mg PO BID [facility] Last Admin: 03/14/17 17:39 Dose: 100 mg Enoxaparin Sodium (Lovenox) 30 mg SC Q12H [facility] Last Admin: 03/15/17 01:57 Dose: 30 mg Hydromorphone HCl (Dilaudid) 1 mg IVP Q4H PRN PRN Reason: Pain, severe (8-10) Last Admin: 03/13/17 23:00 Dose: 1 mg Insulin Human Regular (Novolin R) 0 unit SC [facility] PRN Reason: Protocol Last Admin: 03/14/17 21:17 Dose: Not Given Lisinopril (Zestril) 10 mg PO DAILY [facility] Last Admin: 03/14/17 09:51 Dose: 10 mg [facility] ([facility]) [facility] Last Admin: 03/14/17 17:39 Dose: 850 mg Oxycodone/Acetaminophen (Percocet 5/325 Mg Tab) 2 tab PO Q4H PRN PRN Reason: pain, mild to moderate Stop: 03/15/17 14:24 Last Admin: 03/15/17 02:01 Dose: 2 tab Rosuvastatin Calcium (Crestor) 2.5 mg PO [facility] Last Admin: 07/27/17 21:18 Dose: 2.5 mg Sitagliptin Phosphate (Januvia) 100 mg PO DAILY [facility] Last Admin: 03/14/17 09:51 Dose: 100 mg - Labs Labs: 03/15/17 06:42 03/15/17 06:38 - Constitutional Appears: Well, No Acute Distress - Extremities Exam Additional comments: Right knee: dressing changed. Incision intact, dry, no erythema. Mild swelling. Small amount of sang drainage from drain site. Calves soft NT neg homans, sensation intact, +DP pulse. Sterile dressing and jyoti reapplied Assessment and Plan (1) Primary osteoarthritis of right knee Assessment & Plan: POD# 3 s/p right knee DJD -awaiting insurance authorization as patient stable for TCU transfer -continue VTE proph -continue percocet prn -add dulcolax -encourage OOB -labs reviewed, WBC downtrending, reactive -d/c to TCU today -cont PT/OT -d/w Dr. Jacobs, agrees with above Status: Acute (2) Acute blood loss anemia Assessment & Plan: hemodynamically stable Status: Acute (3) Hypertension Assessment & Plan: cont home meds Status: Chronic (4) Diabetes type 2, controlled Status: Chronic (5) Hyperlipemia Status: Chronic
[2017-03-15] MEDS: (Novolin R) Insulin Human Regular 100 units/ml vial SC SCH ×2 (09:03→13:25)
[2017-03-15] MEDS ORDERED: Multiple Vitamins Tab PO SCH (10:00)
[2017-03-15 14:52] VITALS: BP 138/77; PULSE 100; TEMP 98.2; O2SAT 99
== END 2017-03-15 14:56 | disposition home or self-care (01) | DRG 470 ==
LOC: C.9S 09:00 → C.6T 13:53
PROVIDERS: ADMIT Orthopaedic Surgery; ATTEND Orthopaedic Surgery
PROC: 0SRC0J9 Replacement of Right Knee Joint with Synthetic Substitute, Cemented, Open Approach (ICD-10-PCS; principal; 2017-03-12 11:20)
DX: M17.11 Unilateral primary osteoarthritis, right knee (principal); I10 Essential (primary) hypertension; E11.9 Type 2 diabetes mellitus without complications; E78.5 Hyperlipidemia, unspecified; Z87.891 Personal history of nicotine dependence

== ENCOUNTER 2017-09-10 09:23 | Inpatient (IN) | payer MEDICARE, SELFPAY ==
[2017-08-20 09:13] VITALS: BMI 18.1
[2017-09-10] MEDS ORDERED: Bupivacaine Liposomal Inj 20 ml INFIL ONE (09:49)
--- NOTE | 2017-09-10 09:51 | CP.PCM.HP ---
History of Present Illness - History of Present Illness History of Present Illness: 67M complains of left knee DJD failed conservative mgmt elects for TKR, no hx CAD, stent, VTE, bleeding PMD: cachorro mccarthy MD PSH: right TKR 2017 PMH: HTN, DM, hyperlipidemia Present on Admission - Present on Admission Any Indicators Present on Admission: No Review of Systems - Review of Systems All systems: reviewed and no additional remarkable complaints except Review of Systems: no recent illness/fever/chills Past Patient History - Tetanus Immunizations Tetanus Immunization: >10 years Ago - Past Medical History & Family History Past Medical History?: Yes - Past Social History Smoking Status: Former Smoker - CARDIAC Hx Cardiac Disorders: Yes Hx Hypercholesterolemia: Yes Hx Hypertension: Yes - PULMONARY Hx Respiratory Disorders: No - NEUROLOGICAL Hx Neurological Disorder: No - HEENT Hx HEENT Problems: Yes Hx Cataracts: Yes (SINCE RIGHT EYE-NO SURGERY) - RENAL Hx Chronic Kidney Disease: No - ENDOCRINE/METABOLIC Hx Endocrine Disorders: Yes Hx Diabetes Mellitus Type 2: Yes - HEMATOLOGICAL/ONCOLOGICAL Hx Blood Disorders: No Hx AIDS: No Hx Human Immunodeficiency Virus (HIV): No - INTEGUMENTARY Hx Dermatological Problems: No - MUSCULOSKELETAL/RHEUMATOLOGICAL Hx Musculoskeletal Disorders: Yes Hx Falls: No Hx Osteoarthritis: Yes Other/Comment: rt knee arthroplasty and TKR - GASTROINTESTINAL Hx Gastrointestinal Disorders: No - GENITOURINARY/GYNECOLOGICAL Hx Genitourinary Disorders: No - PSYCHIATRIC Hx Psychophysiologic Disorder: No Hx Substance Use: No - SURGICAL HISTORY Hx Surgeries: Yes Hx Orthopedic Surgery: Yes (RIGHT TOTAL KNEE REPLACEMENT) - ANESTHESIA Hx Anesthesia: Yes Hx Anesthesia Reactions: No Hx Malignant Hyperthermia: No Meds Allergies/Adverse Reactions: Allergies Allergy/AdvReac Type Severity Reaction Status Date / Time No Known Allergies Allergy Verified 03/15/17 15:47 Physical Exam - Constitutional Appears: Well (+DP/PT), No Acute Distress - Expanded Lower Extremities Exam Left Knee exam: full ROM Ankle exam: FULL ROM (+DP/PT pulses, calves soft NT neg homans) - Neurological Exam Neurological exam: Alert, Oriented x3 - Psychiatric Exam Psychiatric exam: Normal Affect, Normal Mood - Skin Skin Exam: Dry, Intact, Normal Color, Warm Assessment & Plan (1) Degenerative joint disease of knee, right Assessment and Plan: NPO T&C for TKR Status: Acute (2) Hypertension Status: Chronic (3) DM2 (diabetes mellitus, type 2) Status: Acute (4) Hyperlipemia Status: Chronic
[2017-09-10] MEDS ORDERED: Tranexamic Acid 100 mg/ml IV SCH (10:00)
[2017-09-10] MEDS ORDERED: Propofol 10 mg/ml Inj (20 ML) ONE (10:59)
[2017-09-10] MEDS ORDERED: Midazolam 2 MG/2 ML VIAL ONE (10:59)
[2017-09-10] MEDS ORDERED: ceFAZolin IV 2 gm in Dextrose 2 GM/50 ML BAG IVPB ONE (11:15)
[2017-09-10] MEDS ORDERED: Sodium Chloride 0.9% 1,000 ML IV SCH (11:30)
[2017-09-10] MEDS ORDERED: HYDROmorphone 1 mg/ml ISec IVP PRN (11:34)
[2017-09-10] MEDS ORDERED: Lactated Ringer's 1,000 ML IV ONE ×2 (11:55→13:27)
[2017-09-10] MEDS ORDERED: ceFAZolin IV 1 gm in Dextrose 2 GM/100 ML BAG IVPB ONE (12:17)
[2017-09-10] MEDS ORDERED: Sodium Chloride 0.9% 60 ML IV ONE (12:41)
[2017-09-10] MEDS: Bacitracin 150,000 UNIT in Sodium Chloride 0.9% Irrig 3,000 ML IR SCH (13:15)
[2017-09-10] MEDS ORDERED: Neostigmine Methylsulfate 3mg/3ml Syringe IV ONE (14:11)
[2017-09-10] MEDS ORDERED: Bupivacaine 0.5% Inj(30mL) ONE (14:41)
--- NOTE | 2017-09-10 15:13 | PCM.SURG1 ---
Surgeon's Initial Post Op Note - Surgeon's Notes Surgeon: Amy Jacobs MD Floating Operator: Gema Villanueva PA-C Type of Anesthesia: General Endo Anesthesia Administered By: Dr. Mauricio Pre-Operative Diagnosis: Left knee DJD Operative Findings: tourniquet: 83 min @ 300mmHg Post-Operative Diagnosis: same Operation Performed: Left total knee replacement Specimen/Specimens Removed: bone Estimated Blood Loss: EBL {In ML}: 100 Blood Products Given: N/A Drains Used: Hemovac Post-Op Condition: Fair Date of Surgery/Procedure: 09/10/17 Time of Surgery/Procedure: 15:12
[2017-09-10] MEDS ORDERED: HYDROmorphone 0.5 mg/0.5 ml ISec IVP PRN (15:14)
--- NOTE | 2017-09-10 15:19 | OP ---
PROCEDURE DATE: 09/10/2017 PREOPERATIVE DIAGNOSIS: Left knee arthritis. POSTOPERATIVE DIAGNOSIS: Left knee arthritis. PROCEDURE: Left total knee arthroplasty. SURGEON: Vamsi Jacobs MD. TRIM INSTALLER: Dr. Jacobs was assisted by Sanjay Villanueva, the physician retail store assistant. Ms. Villanueva was scrubbed and present throughout the entire case and assisted in patient positioning, retraction and wound closure. TYPE OF ANESTHESIA: General. COMPLICATIONS: None. ESTIMATED BLOOD LOSS: 100 mL. IMPLANT: A [employer] Vanguard total knee system. INDICATIONS FOR PROCEDURE: This is a 67-year-old gentleman with longstanding left knee pain. Clinical examination was consistent with significant medial joint line tenderness, pain with axial load and medial parapatellar tenderness. Radiographic examination consisted with left knee degenerative joint disease. After a period of failed nonsurgical management, recommendations were for a left total knee arthroplasty. The risks, benefits and alternatives of the procedure were discussed with the patient and the informed consent was obtained. DESCRIPTION OF PROCEDURE: After surgical site was finally verified in the preoperative holding area, the patient was taken to the operating room and placed supine on the operating room table. After administration of general anesthesia, Tomlin catheter was inserted. The patient received 2 g of Ancef IV. Tourniquet was placed about the left thigh. Care was taken to make sure that all bony prominences and nerves were well padded and protected. Venodyne boot was placed on the nonoperative extremity and the left lower extremity was prepped and draped in the usual sterile fashion. The tourniquet was inflated and approximately 10 cm longitudinal midline incision was made. Soft tissues were dissected sharply down to the knee joint and the medial parapatellar arthrotomy was performed. Anterior fat pad, medial and lateral menisci as well as ACL and PCL were all resected. Once the knee joint was adequately exposed, step drill was used to drill into the medullary canal of the distal femur and the intramedullary distal femoral cutting block was inserted and pinned into place. Distal femoral resection was performed. Next, a femoral component was sized and a 4-in-1 cut block was pinned into place. Anterior and posterior cuts were performed. Next, the box cut was performed on the distal femur and attention was directed to the tibia. Extramedullary tibial guide was inserted and pinned into place. Satisfied with our alignment, tibial resection was performed. Next, at this point, our flexion and extension gaps were checked. The patient was noted to have full flexion and extension and stable with varus and valgus stress and well balance. Tibial plate was sized and being careful to maintain proper rotation, the medullary canal of the proximal tibia was reamed and punched with a cruciate punch. At this point, with a trial tibia, trial femur and a trial bearing in place, the knee was taken through range of motion and was noted to have full extension and flexion and stable throughout. Next, our attention was directed to the patella. The thickness of the patella was measured and a patellar resection was performed. The patellar button was sized and the holes for our patella were then drilled. The trial patella was placed and the knee was taken through a range of motion. The patient was noted to have some mild lateral tilt and this was corrected by performing a lateral retinacular release. At this point, all the trial components were removed and the knee joint was pulse lavaged with antibiotic saline solution. The bony surfaces were dried and the actual tibial femoral and patellar components were cemented into place. Once the cement had hardened, the excess cement was removed. The knee was once again pulse lavaged. The actual bearing was then inserted and locked into place with a cross pin. The tourniquet was deflated and any obvious bleeding was cauterized. The medium Hemovac drain was inserted and arthrotomy was closed using #1 Vicryl suture, subcutaneous tissue was closed using 0 Vicryl and 2-0 Vicryl suture and the skin was closed using isaac. Sterile BELKIS dressing was applied and a knee immobilizer was placed. The patient was awakened from the procedure and taken to the recovery room in stable condition. Vamsi Jacobs MD
--- NOTE | 2017-09-10 16:26 | RAD ---
PROCEDURE: Left Knee Radiographs. HISTORY: Pain. COMPARISON: None. FINDINGS: BONES: Status post total left knee arthroplasty with prostheses anatomical aligned JOINTS: Postop JOINT EFFUSION: Small effusion suggested OTHER FINDINGS: Drain projects over lateral retropatellar joint recess. Anterior skin isaac in place IMPRESSION: Status post total left knee arthroplasty with prostheses anatomical aligned
[2017-09-10] MEDS ORDERED: Sodium Chloride 0.9% 1,000 ML IV ONE (16:45)
[2017-09-10] MEDS: (Novolin R) Insulin Human Regular 100 units/ml vial SC SCH ×2 (17:37→21:51)
--- NOTE | 2017-09-10 18:22 | CP.PCM.CON ---
History of Present Illness - History of Present Illness History of Present Illness: cc: Medical Consult HPI: Pt is a 67 yo male, a patient of mine for many years, who started complaining of bilateral knee pain, R> L about 1.5 years ago. Had proposed to pt a TKA a few years ago and finally at the point where he has difficulty walking and getting his ADLs done. Pt seen after surgery in good spirits, and says pain is present but more of an annoyance now. Pt psyched to undergo PT after the surgery, and knows what to expect from previous surgery. Review of Systems - Review of Systems Systems not reviewed;Unavailable: Acuity of Condition, Unstable Vital Signs, Respiratory Distress, Dementia, Altered Mental Status, Intoxicated, Uncooperative, Psychotic, Intubated, Language Barrier, Other - Constitutional Constitutional: absent: As Per HPI, Anorexia, Chills, Daytime Sleepiness, Excessive Sweating, Fatigue, Fever, Frequent Falls, Headache, Increased Appetite , Lethargy, Malaise, Night Sweats, Snoring, Sleep Apnea, Weight Gain, Weight Loss, Weakness, Other - EENT Eyes: absent: As Per HPI, Blind Spots, Blurred Vision, Change in Vision, Decreased Night Vision, Diplopia, Discharge, Dry Eye, Exophthalmos, Floaters, Irritation, Itchy Eyes, Loss of Peripheral Vision, Pain, Photophobia, Requires Corrective Lenses, Sees Flashes, Spots in Vision, Tunnel Vision, Other Visual Disturbances, Loss of Vision, Other Ears: absent: As Per HPI, Decreased Hearing, Ear Discharge, Ear Pain, Tinnitus, Abnormal Hearing, Disequilibrium, Dizziness, Other Nose/Mouth/Throat: absent: As Per HPI, Epistaxis, Nasal Congestion, Nasal Discharge, Nasal Obstruction, Nasal Trauma, Nose Pain, Post Nasal Drip, Sinus Pain, Sinus Pressure, Bleeding Gums, Change in Voice, Dental Pain, Dry Mouth, Dysphagia, Halitosis, Hoarsness, Lip Swelling, Mouth Lesions, Mouth Pain, Odynophagia, Sore Throat, Throat Swelling, Tongue Swelling, Facial Pain, Neck Pain, Neck Mass, Other - Cardiovascular Cardiovascular: absent: As Per HPI, Acrocyanosis, Chest Pain, Chest Pain at Rest , Chest Pain with Activity, Claudication, Diaphoresis, Dyspnea, Dyspnea on Exertion, Edema, Irregular Heart Rhythm, Pain Radiating to Arm/Neck/Jaw, Leg Edema, Leg Ulcers, Lightheadedness, Orthopnea, Palpitations, Paroxysmal Nocturnal Dyspnea, Pedal Edema, Radiating Pain, Rapid Heart Rate, Slow Heart Rate, Syncope, Other - Respiratory Respiratory: absent: As Per HPI, Cough, Dyspnea, Hemoptysis, Dyspnea on Exertion , Wheezing, Snoring, Stridor, Pain on Inspiration, Chest Congestion, Excessive Mucous Production, Change in Mucous Color, Pain with Coughing, Other - Gastrointestinal Gastrointestinal: absent: As Per HPI, Abdominal Pain, Belching, Bloating, Change in Bowel Habits, Change in Stool Character, Coffee Ground Emesis, Constipation, Cramping, Diarrhea, Dyspepsia, Dysphagia, Early Satiety, Excessive Flatus, Fecal Incontinence, Heartburn, Hematemesis, Hematochezia, Loose Stools, Melena, Nausea, Odynophagia, Temesmus, Vomiting, Other - Genitourinary Genitourinary: absent: As Per HPI, Change in Urinary Stream, Difficulty Urinating, Dysuria, Flank Pain, Hematuria, Pyuria, Nocturia, Urinary Incontinence, Urinary Frequency, Urinary Hesitance, Urinary Urgency, Voiding Freq/Small Amts, Freq UTI, Hx Renal/Bladder Calculi, Hx /Renal Surgery, Bladder Distension, Other - Reproductive: Male Reproductive:Male: As Per HPI, Prepubesant, Dyspareunia, Genital Lesions, Genital Pruritis, Pelvic Pain, Sexual Dysfunction, Penile Discharge, Genital Odor, Impotence, On ED Medications, Penile Implant, Other - Musculoskeletal Musculoskeletal: Limited Range of Motion (L knee, s/p TKA) - Integumentary Integumentary: absent: As Per HPI, Acne, Alopecia, Bleeding Lesions, Change in Hair, Change in Nails, Change in Pigmentation, Changing Lesions, Dry Skin, Erythema, Furuncle, Hirsutism, Lesions, New Lesions, Non-Healing Lesions, Photosensitivity, Pruritus, Rash, Skin Pain, Skin Ulcer, Sores, Striae, Swelling , Unusual Bruising, Wounds, Jaundice, Other Past Patient History - Tetanus Immunizations Tetanus Immunization: >10 years Ago - Past Medical History & Family History Past Medical History?: Yes - Past Social History Smoking Status: Former Smoker Chewing Tobacco Use: No Cigar Use: No Occupation: retired Alcohol: Social Drugs: Denies - CARDIAC Hx Cardiac Disorders: Yes Hx Hypercholesterolemia: Yes Hx Hypertension: Yes - PULMONARY Hx Respiratory Disorders: No - NEUROLOGICAL Hx Neurological Disorder: No - HEENT Hx HEENT Problems: Yes Hx Cataracts: Yes (SINCE RIGHT EYE-NO SURGERY) - RENAL Hx Chronic Kidney Disease: No - ENDOCRINE/METABOLIC Hx Endocrine Disorders: Yes Hx Diabetes Mellitus Type 2: Yes - HEMATOLOGICAL/ONCOLOGICAL Hx Blood Disorders: No Hx AIDS: No Hx Human Immunodeficiency Virus (HIV): No - INTEGUMENTARY Hx Dermatological Problems: No - MUSCULOSKELETAL/RHEUMATOLOGICAL Hx Musculoskeletal Disorders: Yes Hx Falls: No Hx Osteoarthritis: Yes Other/Comment: rt knee arthroplasty and TKR - GASTROINTESTINAL Hx Gastrointestinal Disorders: No - GENITOURINARY/GYNECOLOGICAL Hx Genitourinary Disorders: No - PSYCHIATRIC Hx Psychophysiologic Disorder: No Hx Substance Use: No - SURGICAL HISTORY Hx Surgeries: Yes Hx Orthopedic Surgery: Yes (RIGHT TOTAL KNEE REPLACEMENT) - ANESTHESIA Hx Anesthesia: Yes Hx Anesthesia Reactions: No Hx Malignant Hyperthermia: No Meds Allergies/Adverse Reactions: Allergies Allergy/AdvReac Type Severity Reaction Status Date / Time No Known Allergies Allergy Verified 03/15/17 15:47 - Medications Medications: Current Medications Acetaminophen (Tylenol 325mg Tab) 650 mg PO Q4 PRN PRN Reason: Fever 101 degrees fahrenheit Aspirin (Ecotrin) 81 mg PO DAILY [facility] Docusate Sodium (Colace) 100 mg PO BID [facility] Last Admin: 09/10/17 17:34 Dose: 100 mg Enoxaparin Sodium (Lovenox) 40 mg SC Q24H [facility] Hydromorphone HCl (Dilaudid) 0.5 mg IVP Q4H PRN PRN Reason: Pain, severe (8-10) Cefazolin Sodium/Dextrose (Ancef Iv 2 Gm Duplex) 2 gm in 50 mls @ 100 mls/hr IVPB Q8H [facility] Stop: 09/11/17 04:29 Sodium Chloride (Sodium Chloride 0.9%) 1,000 mls @ 100 mls/hr IV .Q10H [facility] Last Admin: 09/10/17 17:36 Dose: 100 mls/hr Insulin Human Regular (Novolin R) 0 unit SC ACHS [facility] PRN Reason: Protocol Last Admin: 09/10/17 17:37 Dose: Not Given Metformin HCl (Glucophage) 850 mg PO BID [facility] Multivitamins (Hexavitamin) 1 tab PO DAILY [facility] Ondansetron HCl (Zofran Inj) 4 mg IVPB Q6H PRN PRN Reason: Nausea/Vomiting Oxycodone/Acetaminophen (Percocet 5/325 Mg Tab) 2 tab PO Q4H PRN PRN Reason: Pain, moderate (4-7) Stop: 09/13/17 11:35 Rosuvastatin Calcium (Crestor) 5 mg PO HS [facility] Physical Exam - Constitutional Appears: Non-toxic, No Acute Distress - Head Exam Head Exam: NORMAL INSPECTION, NORMOCEPHALIC - Eye Exam Eye Exam: Normal appearance Pupil Exam: NORMAL ACCOMODATION - ENT Exam ENT Exam: Mucous Membranes Moist - Respiratory Exam Respiratory Exam: Clear to Auscultation Bilateral - Cardiovascular Exam Cardiovascular Exam: REGULAR RHYTHM - GI/Abdominal Exam GI & Abdominal Exam: Normal Bowel Sounds - Extremities Exam Extremities exam: Positive for: normal inspection - Back Exam Back exam: NORMAL INSPECTION - Neurological Exam Neurological exam: Normal Gait - Psychiatric Exam Psychiatric exam: Normal Affect, Normal Mood - Skin Skin Exam: Dry, Intact, Normal Color, Warm Results - Vital Signs Recent Vital Signs: Last Vital Signs Temp 97.8 F 09/10/17 16:45 Pulse 76 09/10/17 16:45 Resp 16 09/10/17 16:45 BP 149/81 09/10/17 16:45 Pulse Ox 100 09/10/17 16:15 - Labs Labs: Laboratory Results - last 24 hr 09/10/17 09/10/17 09/10/17 10:16 10:34 17:13 POC Glucose (mg/dL) 132 H 151 H Blood Type A POSITIVE Antibody Screen Negative Assessment & Plan (1) Degenerative joint disease of knee, right Assessment and Plan: s/p R knee arthroplasty. encouraged pt to go to Acute Rehab for better outcomes Status: Acute (2) DM2 (diabetes mellitus, type 2) Assessment and Plan: controlled, no high BS spikes Status: Acute (3) Hyperlipemia Assessment and Plan: on rosuvastatin Status: Chronic (4) Hypertension Assessment and Plan: on bp meds. losartan ineffective, will switch to metoprolol fully bid Status: Chronic
--- NOTE | 2017-09-10 18:28 | PCM.ANESB7 ---
Adductor Canal Block - Adductor Canal Block Date of Procedure: 09/10/17 Anesthiologist: Chivo Pre-Procedure Diagnosis: s/p left knee replacement Procedure Performed: Adductor Canal Block Left - Procedure Adductor Canal Block: Left femoral nerve block, adductor canal approach The procedure was explained to the patient that it is for the post-operative pain management. Consent was obtained after a thorough discussion with the patient regarding the benefits and possible complications of local anesthetic adductor canal block of the femoral nerve. Standard monitors, as defined by the ASA, were applied to the patient. Time-out was held with LATIN TEACHER to confirm the appropriate block. The ultrasound transducer applied transversely along the medial aspect, about midway down the thigh and the femoral artery and vein were identified in appropriate relation with the sartorius muscle. At this time, the femoral nerve was visualized lateral to the femoral artery within the canal. After thorough identification, this area area was prepped with Chloroprep solution three times. At this point, a #22 gauge Stimuplex 4-inch needle was inserted in-plane in a [id number] orientation, and advanced toward the femoral nerve. Advancement was performed carefully under direct ultrasound visualization. After negative aspiration, __25___cc of __0.5___% _bupivacaine in 5 cc increments. Under ultrasound guidance the local anesthetics were observed spreading around the femoral nerve. The needle was removed intact and sterile dressing was applied. The patient had stable vital signs, was conscious and in no apparent distress. The patient tolerated the femoral nerve block well with stable vital signs and was prepared for subsequent surgery
[2017-09-10] MEDS: Oxycodone/Acetaminophen 5/325 mg Tab PO PRN (21:21)
[2017-09-10] MEDS: ceFAZolin IV 2 gm in Dextrose 2 GM/50 ML BAG IVPB SCH (21:47)
[2017-09-11] MEDS ORDERED: ceFAZolin IV 2 gm in Dextrose 2 GM/50 ML BAG IVPB STA (05:52)
[2017-09-11] MEDS ORDERED: ceFAZolin IV 2 gm in Dextrose 2 GM/50 ML BAG IVPB SCH (06:00)
[2017-09-11] MEDS: ceFAZolin IV 2 gm in Dextrose 2 GM/50 ML BAG IVPB SCH (06:10)
[2017-09-11] MEDS: Oxycodone/Acetaminophen 5/325 mg Tab PO PRN ×3 (06:13→19:29)
[2017-09-11] MEDS: (Novolin R) Insulin Human Regular 100 units/ml vial SC SCH ×4 (06:50→22:11)
[2017-09-11 06:53] LABS: BLOOD UREA NITROGEN 13 mg/dL (9-20); CALCIUM 8.6 mg/dl (8.6-10.4); GFR AFRICAN-AMERICAN > 60; GFR NON-AFRICAN AMERICAN > 60
[2017-09-11 07:01] LABS: MEAN CELL VOLUME 81.8 fL (80.0-94.0); MEAN CORPUSCULAR HEMOGLOBIN 27.4 pg (27.0-31.0); MEAN CORPUSCULAR HGB CONC 33.5 g/dL (33.0-37.0); MEAN PLATELET VOLUME 8.8 fL (7.2-11.7); RBC 4.24 Mil/uL (4.40-5.90); RED CELL DISTRIBUTION WIDTH 15.7 % (11.5-14.5); WHITE BLOOD COUNT 10.8 K/uL (4.8-10.8)
[2017-09-11 07:12] LABS: HEMOGLOBIN 11.6 g/dL (12.0-18.0)
--- NOTE | 2017-09-11 08:41 | CP.PCM.PN ---
Subjective - Date & Time of Evaluation Date of Evaluation: 09/11/17 Time of Evaluation: 08:38 - Subjective Subjective: Pt awake, alert. Adequate pain control. Afebrile, VSS L knee: dressing clean and intact immobilizer in place drain in place Hg 11.6 POD#1 PT, DVT prophylaxis d/c planning to acute rehab Objective - Vital Signs/Intake and Output Vital Signs (last 24 hours): Temp Pulse Resp BP Pulse Ox 98.1 F 78 20 119/72 98 09/11/17 08:10 09/11/17 08:10 09/11/17 08:10 09/11/17 08:10 09/11/17 08:10 Intake and Output: 09/11/17 09/11/17 06:59 18:59 Intake Total 800 Output Total 2650 Balance -1850 - Medications Medications: Current Medications Acetaminophen (Tylenol 325mg Tab) 650 mg PO Q4 PRN PRN Reason: Fever 101 degrees fahrenheit Aspirin (Ecotrin) 81 mg PO DAILY [facility] Docusate Sodium (Colace) 100 mg PO BID [facility] Last Admin: 09/10/17 17:34 Dose: 100 mg Enoxaparin Sodium (Lovenox) 40 mg SC Q24H [facility] Hydromorphone HCl (Dilaudid) 0.5 mg IVP Q4H PRN PRN Reason: Pain, severe (8-10) Sodium Chloride (Sodium Chloride 0.9%) 1,000 mls @ 100 mls/hr IV .Q10H [facility] Last Admin: 09/10/17 17:36 Dose: 100 mls/hr Insulin Human Regular (Novolin R) 0 unit SC ACHS [facility] PRN Reason: Protocol Last Admin: 09/11/17 06:50 Dose: 2 unit Metformin HCl (Glucophage) 850 mg PO BID [facility] Multivitamins (Hexavitamin) 1 tab PO DAILY [facility] Ondansetron HCl (Zofran Inj) 4 mg IVPB Q6H PRN PRN Reason: Nausea/Vomiting Oxycodone/Acetaminophen (Percocet 5/325 Mg Tab) 2 tab PO Q4H PRN PRN Reason: Pain, moderate (4-7) Stop: 09/13/17 11:35 Last Admin: 09/11/17 06:13 Dose: 2 tab Rosuvastatin Calcium (Crestor) 5 mg PO HS [facility] Last Admin: 09/10/17 21:21 Dose: 5 mg - Labs Labs: 09/11/17 06:33 09/11/17 06:33
[2017-09-11] MEDS: Multiple Vitamins Tab PO SCH (09:21)
[2017-09-11] MEDS: Enoxaparin 40 mg Syringe SC SCH (13:10)
[2017-09-12] MEDS: Oxycodone/Acetaminophen 5/325 mg Tab PO PRN ×4 (03:24→19:28)
[2017-09-12 06:46] LABS: HEMOGLOBIN 10.7 g/dL (12.0-18.0); MEAN CELL VOLUME 81.4 fL (80.0-94.0); MEAN CORPUSCULAR HEMOGLOBIN 28.2 pg (27.0-31.0); MEAN CORPUSCULAR HGB CONC 34.7 g/dL (33.0-37.0); MEAN PLATELET VOLUME 8.7 fL (7.2-11.7); RBC 3.81 Mil/uL (4.40-5.90); RED CELL DISTRIBUTION WIDTH 15.8 % (11.5-14.5); WHITE BLOOD COUNT 8.8 K/uL (4.8-10.8)
[2017-09-12 07:02] LABS: BLOOD UREA NITROGEN 12 mg/dL (9-20); CALCIUM 8.6 mg/dl (8.6-10.4); GFR AFRICAN-AMERICAN > 60; GFR NON-AFRICAN AMERICAN > 60
--- NOTE | 2017-09-12 07:05 | CP.PCM.PN ---
Subjective - Date & Time of Evaluation Date of Evaluation: 09/12/17 Time of Evaluation: 07:41 - Subjective Subjective: Patient complaining of significant left knee pain, injection helps pain. Denies CP/SOB/dizziness. Objective - Vital Signs/Intake and Output Vital Signs (last 24 hours): Temp Pulse Resp BP Pulse Ox 97.6 F 93 H 20 133/77 98 09/12/17 04:00 09/12/17 04:00 09/12/17 04:00 09/12/17 04:00 09/12/17 04:00 Intake and Output: 09/12/17 09/12/17 06:59 18:59 Output Total 800 Balance -800 - Medications Medications: Current Medications Acetaminophen (Tylenol 325mg Tab) 650 mg PO Q4 PRN PRN Reason: Fever 101 degrees fahrenheit Aspirin (Ecotrin) 81 mg PO DAILY [facility] Last Admin: 09/11/17 09:21 Dose: 81 mg Docusate Sodium (Colace) 100 mg PO BID [facility] Last Admin: 09/11/17 17:32 Dose: 100 mg Enoxaparin Sodium (Lovenox) 40 mg SC Q24H [facility] Last Admin: 09/11/17 13:10 Dose: 40 mg Hydromorphone HCl (Dilaudid) 0.5 mg IVP Q4H PRN PRN Reason: Pain, severe (8-10) Last Admin: 09/11/17 23:59 Dose: 0.5 mg Insulin Human Regular (Novolin R) 0 unit SC ACHS [facility] PRN Reason: Protocol Last Admin: 09/11/17 22:11 Dose: Not Given Metformin HCl (Glucophage) 850 mg PO BID [facility] Multivitamins (Hexavitamin) 1 tab PO DAILY [facility] Last Admin: 09/11/17 09:21 Dose: 1 tab Ondansetron HCl (Zofran Inj) 4 mg IVPB Q6H PRN PRN Reason: Nausea/Vomiting Oxycodone/Acetaminophen (Percocet 5/325 Mg Tab) 2 tab PO Q4H PRN PRN Reason: Pain, moderate (4-7) Stop: 09/13/17 11:35 Last Admin: 09/12/17 03:24 Dose: 2 tab Rosuvastatin Calcium (Crestor) 5 mg PO [facility] Last Admin: 09/11/17 22:12 Dose: 5 mg - Labs Labs: 09/11/17 06:33 09/12/17 06:30 - Extremities Exam Additional comments: LLE: hemovac pulled dressing changed incision intact, no erythema, dry, mild swelling calves soft NT neg homansn +DP/PT Pulses +ROM ankle/toes Assessment and Plan (1) Degenerative joint disease of knee, left Assessment & Plan: POD#2s/p LEFT TKR PT/OT d/c planning VTE proph CPM labs reviewed d/w Dr. Jacobs , agrees wtih above Status: Acute (2) Hypertension Status: Chronic (3) DM2 (diabetes mellitus, type 2) Status: Acute (4) Hyperlipemia Status: Chronic
[2017-09-12] MEDS: (Novolin R) Insulin Human Regular 100 units/ml vial SC SCH ×4 (07:48→21:23)
[2017-09-12] MEDS: Multiple Vitamins Tab PO SCH (09:44)
[2017-09-12] MEDS: Enoxaparin 40 mg Syringe SC SCH (14:10)
[2017-09-13] MEDS: Oxycodone/Acetaminophen 5/325 mg Tab PO PRN ×2 (04:19→08:52)
[2017-09-13 07:03] LABS: BLOOD UREA NITROGEN 12 mg/dL (9-20); CALCIUM 8.6 mg/dl (8.6-10.4); GFR AFRICAN-AMERICAN > 60; GFR NON-AFRICAN AMERICAN > 60
[2017-09-13 07:10] LABS: HEMOGLOBIN 10.3 g/dL (12.0-18.0); MEAN CELL VOLUME 80.9 fL (80.0-94.0); MEAN CORPUSCULAR HEMOGLOBIN 28.3 pg (27.0-31.0); MEAN PLATELET VOLUME 8.7 fL (7.2-11.7); RBC 3.63 Mil/uL (4.40-5.90); WHITE BLOOD COUNT 8.1 K/uL (4.8-10.8)
[2017-09-13] MEDS: (Novolin R) Insulin Human Regular 100 units/ml vial SC SCH ×4 (08:53→21:25)
[2017-09-13] MEDS: Multiple Vitamins Tab PO SCH (09:05)
--- NOTE | 2017-09-13 10:06 | CP.PCM.PN ---
Subjective - Date & Time of Evaluation Date of Evaluation: 09/13/17 Time of Evaluation: 10:04 - Subjective Subjective: Patient states pain is improving. Denies CP/SOB/dizziness. Objective - Vital Signs/Intake and Output Vital Signs (last 24 hours): Temp Pulse Resp BP Pulse Ox 98.9 F 92 H 20 133/75 98 09/13/17 08:19 09/13/17 08:19 09/13/17 08:19 09/13/17 08:19 09/13/17 08:19 Intake and Output: 09/13/17 09/13/17 06:59 18:59 Output Total 500 Balance -500 - Medications Medications: Current Medications Acetaminophen (Tylenol 325mg Tab) 650 mg PO Q4 PRN PRN Reason: Fever 101 degrees fahrenheit Aspirin (Ecotrin) 81 mg PO DAILY [facility] Last Admin: 09/13/17 09:05 Dose: 81 mg Docusate Sodium (Colace) 100 mg PO BID [facility] Last Admin: 09/13/17 09:04 Dose: 100 mg Enoxaparin Sodium (Lovenox) 40 mg SC Q24H [facility] Last Admin: 09/12/17 14:10 Dose: 40 mg Hydromorphone HCl (Dilaudid) 0.5 mg IVP Q4H PRN PRN Reason: Pain, severe (8-10) Last Admin: 09/12/17 23:59 Dose: 0.5 mg Insulin Human Regular (Novolin R) 0 unit SC [facility] PRN Reason: Protocol Last Admin: 09/13/17 08:53 Dose: 3 unit Metformin HCl (Glucophage) 850 mg PO BID [facility] Last Admin: 09/13/17 09:05 Dose: 850 mg Multivitamins (Hexavitamin) 1 tab PO DAILY [facility] Last Admin: 09/13/17 09:05 Dose: 1 tab Ondansetron HCl (Zofran Inj) 4 mg IVPB Q6H PRN PRN Reason: Nausea/Vomiting Oxycodone/Acetaminophen (Percocet 5/325 Mg Tab) 2 tab PO Q4H PRN PRN Reason: Pain, moderate (4-7) Stop: 09/13/17 11:35 Last Admin: 09/13/17 08:52 Dose: 2 tab Rosuvastatin Calcium (Crestor) 5 mg PO [facility] Last Admin: 09/12/17 21:22 Dose: 5 mg - Labs Labs: 09/13/17 06:25 09/13/17 06:25 - Extremities Exam Additional comments: +ROM ankle/toes, sensation intact, +DP/PT pulses calves soft NT neg homans incision intact, no erythema. dry. Assessment and Plan (1) Degenerative joint disease of knee, left Assessment & Plan: POD#3 s/p tkr no beds at [facility], so [facility] referral d/c today to rehab cont VTE proph, dressing changes, WBAT, knee immob at night f/u approx 10 days call for appt d/w Dr. Jacobs, agrees with above Status: Acute (2) Hypertension Status: Chronic (3) DM2 (diabetes mellitus, type 2) Status: Acute (4) Hyperlipemia Status: Chronic
[2017-09-13] MEDS: Enoxaparin 40 mg Syringe SC SCH (13:47)
[2017-09-13] MEDS: oxyCODONE 10 mg Immediate Release Tab PO PRN (18:16)
[2017-09-14 02:37] VITALS: O2SAT 99
[2017-09-14] MEDS: oxyCODONE 10 mg Immediate Release Tab PO PRN (05:56)
[2017-09-14] MEDS: (Novolin R) Insulin Human Regular 100 units/ml vial SC SCH ×2 (08:08→12:32)
[2017-09-14 08:13] VITALS: BP 150/87; PULSE 95; RESP 18; TEMP 98.8
[2017-09-14] MEDS: Multiple Vitamins Tab PO SCH (09:53)
[2017-09-14] MEDS: Enoxaparin 40 mg Syringe SC SCH (13:41)
--- NOTE | 2017-09-14 14:19 | CP.PCM.DIS ---
Provider - Provider Date of Admission: 09/10/17 09:23 Attending physician: Vamsi Jacobs MD Time Spent in preparation of Discharge (in minutes): 5 Diagnosis - Discharge Diagnosis (1) Degenerative joint disease of knee, left Status: Acute (2) Hypertension Status: Chronic (3) DM2 (diabetes mellitus, type 2) Status: Acute (4) Hyperlipemia Status: Chronic (5) Acute blood loss anemia Status: Acute Hospital Course - Lab Results Lab Results: Most Recent Lab Values WBC 8.1 K/uL (4.8-10.8) 09/13/17 06:25 RBC 3.63 Mil/uL (4.40-5.90) L 09/13/17 06:25 Hgb 10.3 g/dL (12.0-18.0) L 09/13/17 06:25 Hct 29.4 % (35.0-51.0) L 09/13/17 06:25 MCV 80.9 fL (80.0-94.0) 09/13/17 06:25 MCH 28.3 pg (27.0-31.0) 09/13/17 06:25 MCHC 35.0 g/dL (33.0-37.0) 09/13/17 06:25 RDW 16.0 % (11.5-14.5) H 09/13/17 06:25 Plt Count 176 K/uL (130-400) 09/13/17 06:25 MPV 8.7 fL (7.2-11.7) 09/13/17 06:25 Sodium 130 mmol/L (132-148) L 09/13/17 06:25 Potassium 3.7 mmol/L (3.6-5.2) 09/13/17 06:25 Chloride 95 mmol/L (98-107) L 09/13/17 06:25 Carbon Dioxide 29 mmol/L (22-30) 09/13/17 06:25 Anion Gap 10 (10-20) 09/13/17 06:25 BUN 12 mg/dL (9-20) 09/13/17 06:25 Creatinine 0.9 mg/dL (0.8-1.5) 09/13/17 06:25 Est GFR ( Amer) > 60 09/13/17 06:25 Est GFR (Non-Af Amer) > 60 09/13/17 06:25 POC Glucose (mg/dL) 156 mg/dL (65-110) H 09/14/17 11:16 Random Glucose 222 mg/dL (75-110) H 09/13/17 06:25 Calcium 8.6 mg/dl (8.6-10.4) 09/13/17 06:25 Blood Type A POSITIVE 09/10/17 10:16 Antibody Screen Negative 09/10/17 10:16 - Hospital Course Hospital Course: [place] [facility] patient report reviewed, last CDS tramadol Jul 2017. Patient counseled on the risks of addiction, physical or psychological dependence, and overdose associated with opioid drugs and the danger of taking opioid drugs with alcohol and other central nervous system depressants, and cautioned patient on storage and disposal. 67M with PMH: DM left knee DJD failed conservtive mgmt and elected for TKR. Patient had uneventful post operative course. Dr. Shaun Connors PMD consulted for medical mgmt, and DM was controlled during admission. Patient was denied rehab abdmission and d/c home with home PT. Patient was started on lovenox for VTE proph and transitioned to eliquis PO at home. Patient instructed to start 09/15 am. Dressing change to right knee daily, keep incision clean and dry. Wear knee immobilizer at night, can removed during day. Patient instructed to resume home meds. F/u Dr. Jacobs 09/26 as scheduled. Patient with acute blood loss anemia, well tolerated, no treatment. Discharge Exam - Head Exam Head Exam: NORMAL INSPECTION, NORMOCEPHALIC - Extremities Exam Additional comments: +ROM ankle/toes, sensation intact, incision intact, no erythema calves soft NT neg homans +DP/PT pulses Discharge Plan - Discharge Medications Prescriptions: Apixaban [Eliquis] 2.5 mg PO Q12H #60 tablet oxyCODONE/Acetaminophen [Percocet 5/325 mg Tab] 2 tab PO Q4H PRN #40 tab PRN Reason: Pain, Moderate (4-7) - Follow Up Plan Condition: GOOD Disposition: HOME/ ROUTINE Instructions: Pain Management After Surgery (DC), Precautions after Total Joint Replacement Surgery (DC), Knee Replacement (DC) Referrals: Vamsi Jacobs MD [Staff Provider] -
== END 2017-09-14 14:51 | disposition home health service (06) | DRG 470 ==
LOC: C.9S 09:23 → C.6T 14:17
PROVIDERS: ADMIT Orthopaedic Surgery; ATTEND Orthopaedic Surgery
PROC: 0SRD0J9 Replacement of Left Knee Joint with Synthetic Substitute, Cemented, Open Approach (ICD-10-PCS; principal; 2017-09-10 11:55)
DX: M17.12 Unilateral primary osteoarthritis, left knee (principal); D62 Acute posthemorrhagic anemia; Z87.891 Personal history of nicotine dependence; E11.9 Type 2 diabetes mellitus without complications; E78.00 Pure hypercholesterolemia, unspecified; I10 Essential (primary) hypertension; Z96.651 Presence of right artificial knee joint